=== PATIENT | female | born 1995 | race African-American/Black ===

== ENCOUNTER 2017-01-25 19:37 | Emergency (ER) | payer MEDICARE | END 2017-01-25 22:20 | disposition home or self-care (01) | LOC: ER 19:37 | DX: O21.0 Mild hyperemesis gravidarum (principal); J45.909 Unspecified asthma, uncomplicated; Z3A.01 Less than 8 weeks gestation of pregnancy; Z79.899 Other long term (current) drug therapy; Z87.891 Personal history of nicotine dependence | CPT/HCPCS: 36415; 96361; 96374; J2550; J2765 ==